=== PATIENT | male | born 1965 | race Caucasian/White ===

== ENCOUNTER 2025-01-13 07:02 | Inpatient (IN) | payer OTHER, SELFPAY ==
[2025-01-13] VITALS (23 sets, daily range): BP systolic 119–153; BP diastolic 67–87; PULSE 53–71; RESP 16–21; TEMP 36.1–36.7; O2SAT 93–100; BMI 28.8
--- NOTE | 2025-01-13 07:19 | EKG_ITS ---
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
[2025-01-13 07:39] LABS: Add Manual Diff / Slide Review NO; Hematocrit 40.5 % (41-53); Hemoglobin 13.8 g/dL (13.5-17.5); Lymphocytes Absolute Auto 1900 /uL (1100-4500); Mean Corpuscular HGB Conc 34.0 % (30-36); Mean Corpuscular Hemoglobin 29.0 PG (26-34); Mean Corpuscular Volume 85.5 fL (80-100); Platelet Count 203 X10^3/uL (150-400)
[2025-01-13 07:47] LABS: Alanine Aminotransferase 22 IU/L (<50); Albumin 5.0 g/dL (3.5-5.0); Albumin Globulin Ratio 1.4 (1.0-2.8); Alkaline Phosphatase 71 U/L (38-126); Blood Urea Nitrogen 17 mg/dL (9-20); Calcium 9.4 mg/dL (8.4-10.2); Carbon Dioxide 27 mmol/L (22-32); Chloride 99 mmol/L (98-107); Estimated Glomerular Filt Rate > 60 mL/min (>60); Globulin 3.6 g/dL (1.7-4.1); Glucose 127 mg/dL (70-99); HEMOLYSIS < 15 (0-50); Lipase 40 U/L (23-300); Potassium 3.8 mmol/L (3.4-5.1); Sodium 139 mmol/L (137-145); Total Protein 8.6 g/dL (6.3-8.2)
--- NOTE | 2025-01-13 09:10 | ED.ABDPAIN ---
HPI - Abdominal Pain General Chief Complaint: Abdominal Pain Stated Complaint: Stomach food poisoning symp; nausea, cramping Time Seen by Provider: 01/13/25 08:52 History of Present Illness HPI narrative: Patient is a 59-year-old male history of hypertension hyperlipidemia probable coronary artery disease but waiting for calcium score no stenting, presenting today with ongoing abdominal pain. He reports it for about 1 week he has had off and on abdominal pain 2 days he had vomiting he feels like he has backed up he has been taking MiraLax but has not really had a good bowel movement. No fever or chills. Now his pain is so bad that he is now having some chest pain. He was recently evaluated at the [facility] for coronary artery disease it appears that there is a partial blockage but waiting for more testing done. He now just feels pain in his belly radiating up to his chest. However the abdominal pain has been worse throughout the week. He also has some mild left flank pain but does not feel like pain from the back is radiating to the front. Related Data Allergies Allergy/AdvReac Type Severity Reaction Status Date / Time No Known Drug Allergies Allergy Verified 01/13/25 07:15 Exam Initial Vital Signs Initial Vital Signs: Vital Signs Temperature 97.8 F 01/13/25 07:15 Pulse Rate 71 01/13/25 07:15 Respiratory Rate 16 01/13/25 07:15 Blood Pressure 144/87 H 01/13/25 07:15 Pulse Oximetry 98 01/13/25 07:15 Oxygen Delivery Method Room Air 01/13/25 07:15 GENERAL: Alert anxious 51-year-old male HEENT: Head atraumatic,EOMI, pupils reactive, face symmetric, moist mucous membranes CARDIOVASCULAR: Regular rate and rhythm without murmurs, rubs or gallops. RESPIRATORY: Breath sounds equal bilaterally, no wheezes rales or rhonchi. ABDOMEN: Soft, minimally tender no significant distention no guarding no rebound negative Leyva's sign EXTREMITIES: Normal range of motion, no clubbing or edema. Neurovascularly intact NEUROLOGICAL: Alert and oriented x4.Normal gait and speech. Cranial nerves II through XII grossly intact. SKIN: Warm, dry, no laceration, no petechiae, no rashes or lesions. Course Orders Ordered: ED Orders 01/13/25 07:19 EKG-12 Lead Stat 01/13/25 07:25 Complete Blood Count AUTO DIFF Stat Comprehensive Metabolic Panel Stat Lipase Stat Troponin & CK Cardiac Panel Stat 01/13/25 09:22 CT abdomen pelvis w con Stat EKG-12 Lead Stat 01/13/25 09:59 US abdomen limited Stat Hydromorphone HCl (Hydromorphone 1 Mg/Ml Syringe) 0.5 mg IV Q2HR PRN PRN Reason: Pain, Moderate (4-6) Ondansetron HCl (Ondansetron 4 Mg/2 Ml Inj) 4 mg IV NOW PRN PRN Reason: Nausea And Vomiting Ondansetron HCl (Ondansetron 4 Mg Odt) 4 mg PO NOW PRN PRN Reason: Nausea And Vomiting Discontinued Medications Hydromorphone HCl (Hydromorphone Hcl 0.5 Mg/0.5 Ml Syringe) 0.5 mg IV NOW ONE Stop: 01/13/25 09:23 Last Admin: 01/13/25 09:43 Dose: 0.5 mg Documented By: MAYI Piperacillin Sod/Tazobactam (Sod 4.5 gm/ Sodium Chloride) 100 mls @ 200 mls/hr IV NOW ONE Stop: 01/13/25 11:04 Last Infusion: 01/13/25 12:39 Dose: Infused Documented By: Admin: 01/13/25 11:12 Dose: 200 mls/hr Documented By: MAYI Cefazolin Sodium/Dextrose (Ancef) 100 mls @ 200 mls/hr IV NOW ONE Stop: 01/13/25 12:54 Ondansetron HCl (Ondansetron 4 Mg/2 Ml Inj) 4 mg IV NOW ONE Stop: 01/13/25 09:23 Last Admin: 01/13/25 09:44 Dose: 4 mg Documented By: MAYI Vital Signs Vital signs: Vital Signs - 8 hr 01/13/25 07:15 01/13/25 07:28 01/13/25 07:29 Temperature 97.8 F Pulse Rate 71 63 Respiratory Rate 16 Blood Pressure 144/87 H 137/75 Pulse Oximetry 98 97 Oxygen Delivery Method Room Air 01/13/25 07:29 01/13/25 07:30 01/13/25 07:30 Temperature Pulse Rate 61 60 Respiratory Rate Blood Pressure 141/81 H Pulse Oximetry 98 98 Oxygen Delivery Method 01/13/25 08:00 01/13/25 08:00 01/13/25 08:30 Temperature Pulse Rate 61 57 L Respiratory Rate Blood Pressure 145/69 H Pulse Oximetry 97 99 Oxygen Delivery Method 01/13/25 08:30 01/13/25 09:00 01/13/25 09:00 Temperature Pulse Rate 57 L Respiratory Rate Blood Pressure 134/73 132/75 Pulse Oximetry 99 Oxygen Delivery Method 01/13/25 09:30 01/13/25 09:30 01/13/25 09:52 Temperature Pulse Rate 55 L Respiratory Rate Blood Pressure 142/67 H 140/70 Pulse Oximetry 100 Oxygen Delivery Method 01/13/25 09:52 01/13/25 10:00 01/13/25 10:00 Temperature Pulse Rate 59 L 57 L Respiratory Rate Blood Pressure 143/77 H Pulse Oximetry 99 95 Oxygen Delivery Method 01/13/25 10:30 01/13/25 10:30 01/13/25 11:00 Temperature Pulse Rate 57 L 56 L Respiratory Rate Blood Pressure 137/75 Pulse Oximetry 96 98 Oxygen Delivery Method 01/13/25 11:22 01/13/25 11:22 01/13/25 11:30 Temperature Pulse Rate 56 L Respiratory Rate Blood Pressure 150/72 H 143/78 H Pulse Oximetry 96 Oxygen Delivery Method 01/13/25 11:30 01/13/25 11:59 01/13/25 11:59 Temperature Pulse Rate 60 59 L Respiratory Rate Blood Pressure 151/75 H Pulse Oximetry 97 97 Oxygen Delivery Method 01/13/25 12:00 01/13/25 12:00 Temperature Pulse Rate 58 L Respiratory Rate Blood Pressure 153/79 H Pulse Oximetry 98 Oxygen Delivery Method MDM - Abdominal Pain Lab Data 01/13/25 07:25 01/13/25 07:25 Labs: Lab Results 01/13/25 Range/Units 07:25 WBC 8.3 (4.5-11.0) X10^3/uL RBC 4.74 (4.5-5.9) X10^6/uL Hgb 13.8 (13.5-17.5) g/dL Hct 40.5 L (41-53) % MCV 85.5 (80-100) fL MCH 29.0 (26-34) PG MCHC 34.0 (30-36) % RDW 13.2 (11.6-14.8) % Plt Count 203 (150-400) X10^3/uL Neut % (Auto) 68.2 (50-75) % Lymph % (Auto) 22.7 L (25-40) % [place] % (Auto) 7.6 (3-14) % Eos % (Auto) 0.9 L (2-4) % Baso % (Auto) 0.6 (0-2) % Neut # (Auto) 5600 (7083-4435) /uL Lymph # (Auto) 1900 (2711-9073) /uL [place] # (Auto) 600 (0-900) /uL Eos # (Auto) 100 (0-450) /uL Baso # (Auto) 100 (0-100) /uL Sodium 139 (137-145) mmol/L Potassium 3.8 (3.4-5.1) mmol/L Chloride 99 (98-107) mmol/L Carbon Dioxide 27 (22-32) mmol/L BUN 17 (9-20) mg/dL Creatinine 0.86 (0.66-1.25) mg/dL Estimated GFR > 60 (>60) mL/min BUN/Creatinine Ratio 19.8 (6-22) Glucose 127 H (70-99) mg/dL Calcium 9.4 (8.4-10.2) mg/dL Total Bilirubin 1.1 (0.2-1.3) mg/dL AST 28 (17-59) IU/L ALT 22 (<50) IU/L Alkaline Phosphatase 71 (38-126) U/L Total Creatine Kinase 128 (55-170) U/L Troponin I < 0.012 (0.01-0.034) ng/mL Total Protein 8.6 H (6.3-8.2) g/dL Albumin 5.0 (3.5-5.0) g/dL Globulin 3.6 (1.7-4.1) g/dL Albumin/Globulin Ratio 1.4 (1.0-2.8) Lipase 40 (23-300) U/L Point of care testing: Urine Dip Bedside Urine Glucose Negative Bedside Urine Bilirubin - Negative Bedside Urine Ketone + 15 Urine Specific [place] 1.005 Bedside Urine Occult Blood - Negative Bedside Urine pH 6.0 Bedside Urine Protein - Negative Bedside Urine Urobilinogen - Negative Bedside Urine Nitrite - Negative Bedside Urine Leukocytes - Negative Esterase Imaging Data CT scan - abdomen/pelvis: Radiologist's Impression: PROCEDURE: CT ABDOMEN PELVIS W CON INDICATIONS: ab pain across lower TECHNIQUE: After the administration of intravenous contrast, axial sections acquired from the lung bases to the pubic symphysis. Coronal and sagittal reformats were performed. For radiation dose reduction, the following was used: automated exposure control, adjustment of mA and/or kV according to patient size. COMPARISON: None. FINDINGS: Image quality: Diagnostic. Lower Chest: No significant findings. ABDOMEN: Liver: No solid mass. Gallbladder: Distended with possible wall thickening versus edema. Few calcified gallstones are noted. Biliary ducts: No biliary dilation. Pancreas: No ductal dilation. Spleen: Size is within normal limits. Adrenal Glands: No adrenal nodules. Kidneys and Ureters: No hydronephrosis. No solid mass. No complex renal cystic lesion which requires follow up. Stomach and Bowel: Normal colonic caliber, without significant wall thickening. Normal appendix. Peritoneum: No abnormal intraperitoneal fluid. No free air. Ventral Wall: No significant ventral hernia. Abdominal Nodes: No retroperitoneal or mesenteric adenopathy by size criteria. Vessels: Aorta and inferior vena cava are normal in size. PELVIS: Pelvic Organs: Unremarkable. Bladder: No bladder wall thickening, accounting for underdistention. Pelvic Nodes: No enlarged lymph nodes. Miscellaneous: No inguinal hernias are seen. Bones: No aggressive osseous abnormality. Degenerative changes with grade 1 anterolisthesis of L5 on S1 and bilateral pars interarticularis defects. IMPRESSION: Gallbladder is distended with wall thickening versus edema. Few calcified gallstones are noted. Recommend correlation with patient's symptoms and right upper quadrant ultrasound for further evaluation. Approved by: Bradford Lerner M.D. on 01/13/2025 at 9:55 US - abdomen: Radiologist's Impression: PROCEDURE: US ABDOMEN LIMITED INDICATIONS: RUQ TECHNIQUE: Real-time scanning was performed of the abdominal and retroperitoneal organs, with image documentation. COMPARISON: None. FINDINGS: Liver: Liver is normal in size and homogeneous in echotexture. Gallbladder: Gallbladder sludge and stones. Gallbladder wall is thickened measuring up to 7 mm. Pericholecystic fluid is present. Positive sonographic Leyva sign. Biliary ducts: Intrahepatic bile ducts are non-dilated. Extrahepatic bile duct caliber measures 4 mm. Normal is 6-7 mm or less in diameter, or 10 mm or less post-cholecystectomy. Pancreas: Visualized portions of the pancreas are sonographically normal. Miscellaneous: No free abdominal fluid. IMPRESSION: Gallbladder sludge and small stones with wall thickening, pericholecystic edema and positive sonographic Leyva sign. Findings are highly concerning for acute cholecystitis. Dictated by: Bradford Lerner M.D. on 01/13/2025 at 11:02 ECG Data Attestation: I personally reviewed and interpreted this ECG as follows: Prior ECG tracings: not available for review Interpretation: EKGs 1. Sinus rhythm rate 64 NC interval 182 QRS 98 QTC 425 T-wave inversion noted in lead 3 lead to his low elevation possible ST-elevation but no ST depression or alert elevation no priors to compare repeat EKGs AKA 2. Sinus rhythm no significant changes similar to prior MDM Narrative Medical decision making narrative: Patient 59-year-old male history of hypertension hyperlipidemia presenting today with 1 week of on and off abdominal pain with intermittent vomiting and some constipation. He continues to have lower abdominal pain now having some chest pain as well. Blood work has been reviewed CBC no leukocytosis no anemia CMP no electrolyte abnormality glucose 127 Bilirubin liver enzymes within normal limits lipase within normal limits Troponin negative Imaging reviewed CT abdomen and pelvis gallbladder distended with wall thickening versus edema few calcified gallstone Ultrasound right upper quadrant gallbladder sludge and small stones with wall thickening pericholecystic edema and positive Leyva's sign concerning for acute cholecystitis EKGs reviewed lead to his low voltage difficult to interpret if there is ST elevation in the lead but it is isolated there is no see depression Patient given Zosyn Dilaudid and Zofran Dr. Menjivar on-call surgery updated patient's symptoms test results he has reviewed imaging agree with probable acute cholecystitis. In ED to see and evaluate patient Patient will be admitted to surgery for acute cholecystitis. Discharge Plan Departure Patient Disposition: Admitted as Observation Clinical Impression: Acute cholecystitis Admit Date/Time: 01/13/25 12:15 Admit Provider: Anjum Menjivar
--- NOTE | 2025-01-13 09:22 | DI.CT.S_ITS ---
PROCEDURE: CT ABDOMEN PELVIS W CON INDICATIONS: ab pain across lower TECHNIQUE: After the administration of intravenous contrast, axial sections acquired from the lung bases to the pubic symphysis. Coronal and sagittal reformats were performed. For radiation dose reduction, the following was used: automated exposure control, adjustment of mA and/or kV according to patient size. COMPARISON: None. FINDINGS: Image quality: Diagnostic. Lower Chest: No significant findings. ABDOMEN: Liver: No solid mass. Gallbladder: Distended with possible wall thickening versus edema. Few calcified gallstones are noted. Biliary ducts: No biliary dilation. Pancreas: No ductal dilation. Spleen: Size is within normal limits. Adrenal Glands: No adrenal nodules. Kidneys and Ureters: No hydronephrosis. No solid mass. No complex renal cystic lesion which requires follow up. Stomach and Bowel: Normal colonic caliber, without significant wall thickening. Normal appendix. Peritoneum: No abnormal intraperitoneal fluid. No free air. Ventral Wall: No significant ventral hernia. Abdominal Nodes: No retroperitoneal or mesenteric adenopathy by size criteria. Vessels: Aorta and inferior vena cava are normal in size. PELVIS: Pelvic Organs: Unremarkable. Bladder: No bladder wall thickening, accounting for underdistention. Pelvic Nodes: No enlarged lymph nodes. Miscellaneous: No inguinal hernias are seen. Bones: No aggressive osseous abnormality. Degenerative changes with grade 1 anterolisthesis of L5 on S1 and bilateral pars interarticularis defects. IMPRESSION: Gallbladder is distended with wall thickening versus edema. Few calcified gallstones are noted. Recommend correlation with patient's symptoms and right upper quadrant ultrasound for further evaluation. Approved by: Bradford Lerner M.D. on 01/13/2025 at 9:55
--- NOTE | 2025-01-13 09:32 | EKG_ITS ---
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
[2025-01-13 09:42] LABS: Creatine Kinase 128 U/L (55-170)
[2025-01-13] MEDS: ONDANSETRON 4 MG/2 ML INJ IV (09:44)
[2025-01-13 09:55] LABS: Troponin I < 0.012 ng/mL (0.01-0.034)
--- NOTE | 2025-01-13 09:59 | DI.US.S_ITS ---
PROCEDURE: US ABDOMEN LIMITED INDICATIONS: RUQ TECHNIQUE: Real-time scanning was performed of the abdominal and retroperitoneal organs, with image documentation. COMPARISON: None. FINDINGS: Liver: Liver is normal in size and homogeneous in echotexture. Gallbladder: Gallbladder sludge and stones. Gallbladder wall is thickened measuring up to 7 mm. Pericholecystic fluid is present. Positive sonographic Leyva sign. Biliary ducts: Intrahepatic bile ducts are non-dilated. Extrahepatic bile duct caliber measures 4 mm. Normal is 6-7 mm or less in diameter, or 10 mm or less post-cholecystectomy. Pancreas: Visualized portions of the pancreas are sonographically normal. Miscellaneous: No free abdominal fluid. IMPRESSION: Gallbladder sludge and small stones with wall thickening, pericholecystic edema and positive sonographic Leyva sign. Findings are highly concerning for acute cholecystitis. Dictated by: Bradford Lerner M.D. on 01/13/2025 at 11:02 Approved by: Bradford Lerner M.D. on 01/13/2025 at 11:04
[2025-01-13] MEDS: PIPERACILLIN/TAZO 4.5 GM in SODIUM CHLORIDE 0.9% 100 ML IV (11:12)
--- NOTE | 2025-01-13 12:22 | P.HP_ITS ---
History of Present Illness History of Present Illness Date Patient Seen: 01/13/25 Time Patient Seen: 12:22 Chief complaint: Stomach food poisoning symp; nausea, cramping Narrative: Sascha is a 59-year-old man who presents with about 1 week of right upper quadrant and epigastric pain that seems to be made worse by eating. The pain comes in waves and can be quite severe when it is at its worst. He may have had other episodes of similar symptoms in the past which he had attributed to food poisoning. He came to the ER today and a CT scan and an ultrasound showed a distended thickened gallbladder with cholelithiasis and sludge. His labs are mostly normal. No prior abdominal surgery. He has diabetes and question of coronary artery disease. Meds Home Medications and Allergies Allergies Allergy/AdvReac Type Severity Reaction Status Date / Time No Known Drug Allergies Allergy Verified 01/13/25 07:15 Exam Vital Signs (past 8 hours): - 01/13/25 07:15 01/13/25 07:28 01/13/25 07:29 Temperature 97.8 F Pulse Rate 71 63 Respiratory Rate 16 Blood Pressure 144/87 H 137/75 Pulse Oximetry 98 97 Oxygen Delivery Method Room Air 01/13/25 07:29 01/13/25 07:30 01/13/25 07:30 Temperature Pulse Rate 61 60 Respiratory Rate Blood Pressure 141/81 H Pulse Oximetry 98 98 Oxygen Delivery Method 01/13/25 08:00 01/13/25 08:00 01/13/25 08:30 Temperature Pulse Rate 61 57 L Respiratory Rate Blood Pressure 145/69 H Pulse Oximetry 97 99 Oxygen Delivery Method 01/13/25 08:30 01/13/25 09:00 01/13/25 09:00 Temperature Pulse Rate 57 L Respiratory Rate Blood Pressure 134/73 132/75 Pulse Oximetry 99 Oxygen Delivery Method 01/13/25 09:30 01/13/25 09:30 01/13/25 09:52 Temperature Pulse Rate 55 L Respiratory Rate Blood Pressure 142/67 H 140/70 Pulse Oximetry 100 Oxygen Delivery Method 01/13/25 09:52 01/13/25 10:00 01/13/25 10:00 Temperature Pulse Rate 59 L 57 L Respiratory Rate Blood Pressure 143/77 H Pulse Oximetry 99 95 Oxygen Delivery Method 01/13/25 10:30 01/13/25 10:30 01/13/25 11:00 Temperature Pulse Rate 57 L 56 L Respiratory Rate Blood Pressure 137/75 Pulse Oximetry 96 98 Oxygen Delivery Method 01/13/25 11:22 01/13/25 11:22 01/13/25 11:30 Temperature Pulse Rate 56 L Respiratory Rate Blood Pressure 150/72 H 143/78 H Pulse Oximetry 96 Oxygen Delivery Method 01/13/25 11:30 Temperature Pulse Rate 60 Respiratory Rate Blood Pressure Pulse Oximetry 97 Oxygen Delivery Method Oxygen Delivery Method Room Air Narrative Exam Narrative: Abdomen is soft, minimally tender in the right upper quadrant No Elyva sign Objective Labs 01/13/25 07:25 01/13/25 07:25 Labs: Laboratory Results - last 24 hr 01/13/25 07:25 WBC 8.3 RBC 4.74 Hgb 13.8 Hct 40.5 L MCV 85.5 MCH 29.0 MCHC 34.0 RDW 13.2 Plt Count 203 Neut % (Auto) 68.2 Lymph % (Auto) 22.7 L [place] % (Auto) 7.6 Eos % (Auto) 0.9 L Baso % (Auto) 0.6 Neut # (Auto) 5600 Lymph # (Auto) 1900 [place] # (Auto) 600 Eos # (Auto) 100 Baso # (Auto) 100 Sodium 139 Potassium 3.8 Chloride 99 Carbon Dioxide 27 BUN 17 Creatinine 0.86 Estimated GFR > 60 BUN/Creatinine Ratio 19.8 Glucose 127 H Calcium 9.4 Total Bilirubin 1.1 AST 28 ALT 22 Alkaline Phosphatase 71 Total Creatine Kinase 128 Troponin I < 0.012 Total Protein 8.6 H Albumin 5.0 Globulin 3.6 Albumin/Globulin Ratio 1.4 Lipase 40 Assessment & Plan Assessment and plan (1) Acute cholecystitis: Status: Acute Plan I discussed laparoscopic cholecystectomy for symptomatic cholelithiasis and he would like to proceed today. Time-Based Coding :: [TOTAL MINUTES] spent with patient and on the chart (including review of chart, obtaining history, exam, reviewing outside data, placing orders, documenting exam and treatment plan, and counseling patient) on [DATE]. 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
[2025-01-13] MEDS: LACTATED RINGERS 1,000 ML 100 ML IV (17:03)
[2025-01-13] MEDS: MELATONIN 3 MG TABLET 9 MG PO (21:02)
[2025-01-14] VITALS (13 sets, daily range): BP systolic 113–170; BP diastolic 52–77; PULSE 51–66; RESP 14–19; TEMP 36.2–37.2; O2SAT 94–98
--- NOTE | 2025-01-14 | PATH_ITS ---
[facility] Accession Number: [id number] No. of containers..01 Tissue . 01 Material submitted: . gallbladder - GALLBLADDER . 01 Diagnosis: GALLBLADDER, CHOLECYSTECTOMY: Acute cholecystitis with cholelithiasis. One benign, reactive lymph node. [facility] [place] 1059 Local . 01 Electronically signed: . Audrey Rodriguez DO, Pathologist NPI- [id number] . 01 Gross description: . Received in formalin, labeled with two patient identifiers and gallbladder, is a 9.5 x 4.9 x 3.9 cm, hemorrhagic, focally disrupted, and deflated gallbladder. The serosa is camargo-brown, hemorrhagic, and dusky with adhesions. The lumen is filled with a moderate amount of hemorrhagic bile intermixed with two green, bosselated calculi ranging from 0.4 cm to 0.5 cm. The mucosa is hood-brown, velvety, and focally ulcerated. The gallbladder wall is fibrotic, edematous, firm, focally rubbery, and markedly thickened up to 1.0 cm. There is a 1.8 cm, firm, prominent, paracystic lymph node. [employer] Chief sections of the gallbladder wall to include cystic duct margin and bisected half of the paracystic lymph node are submitted in cassettes A1-A2. ([id number]) /FRR 01/16/2025 1338 Local . 01 Pathologist provided ICD-10: K81.0 . 01 CPT . 681083 Specimen Comment: A courtesy copy of this report has been sent to [phone] Performed at: [address], [place], [place] [id number] MD Alan Mcclain MD Phone: [phone]
[2025-01-14] MEDS: LACTATED RINGERS 1,000 ML 100 ML IV ×2 (02:32→13:30)
[2025-01-14 06:50] LABS: Add Manual Diff / Slide Review NO; Hematocrit 37.1 % (41-53); Hemoglobin 12.6 g/dL (13.5-17.5); Lymphocytes Absolute Auto 1500 /uL (1100-4500); Mean Corpuscular HGB Conc 33.9 % (30-36); Mean Corpuscular Hemoglobin 29.1 PG (26-34); Mean Corpuscular Volume 85.9 fL (80-100); Platelet Count 182 X10^3/uL (150-400)
[2025-01-14 07:11] LABS: Alanine Aminotransferase 16 IU/L (<50); Albumin 3.9 g/dL (3.5-5.0); Albumin Globulin Ratio 1.4 (1.0-2.8); Alkaline Phosphatase 61 U/L (38-126); Blood Urea Nitrogen 13 mg/dL (9-20); Calcium 9.0 mg/dL (8.4-10.2); Carbon Dioxide 27 mmol/L (22-32); Chloride 102 mmol/L (98-107); Estimated Glomerular Filt Rate > 60 mL/min (>60); Globulin 2.7 g/dL (1.7-4.1); Glucose 94 mg/dL (70-99); HEMOLYSIS < 15 (0-50); Potassium 4.1 mmol/L (3.4-5.1); Sodium 139 mmol/L (137-145); Total Protein 6.6 g/dL (6.3-8.2)
--- NOTE | 2025-01-14 09:17 | CM.DANOTE ---
Addendum entered by KOFFI Rowley 01/14/25 12:56: per supervisor in charge in rounds, plan for lap loreto today. potential even to dc home after that vs dc home tomorrow. no obvious CM needs SL Original Note: DCP Assessment Note Brief Pt is a 59yo M admitted with abdominal pain, followed by Dr. Menjivar for a lap loreto. unsure if pt is POD1 or not no OR notes from yesterday but the H&P indicates pt was to receive lap loreto yesterday. KOFFI reviewed EMR per chart review, pt lives indep with family in [place]. works for [employer]? primary care through the [facility]. per chart review, no obvious needs identified at this time. anticipate eventual dc home with family support when medically stable. unclear timeline at this time due to lack of documentation. KOFFI Rowley Discharge Planning/Care Management CM Discharge Assessment Start: 01/13/25 14:21 Freq: Status: Active Protocol: Document 01/14/25 09:16 VIPUL (Rec: 01/14/25 09:17 [id number]) Discharge Planning Assessment Assigned Discharge KOFFI Tena Burrer Machine Provider none listed Insurance Comment [facility] DPOA/Assigned Cresencia, mother Designee Name Contact Information [phone] Advance Directives? No History Provided By Patient Prior Living House Arrangements Household Members family Independent with ADL Yes 's Is patient alert and Yes oriented? Referrals Initiated None needed Review Status In Process Please Provide Date 01/14/25 Initial DC Assessment Was Performed Next Review Type Continued Stay Review
[2025-01-14] MEDS: LACTATED RINGERS 1,000 ML 42 ML IV ×2 (09:19→10:57)
--- NOTE | 2025-01-14 09:24 | PM.PN.IH.1 ---
Subjective Subjective Date Patient Seen: 01/14/25 Time Patient Seen: 09:24 Interval history: Surgery was delayed due to an emergent . He has done well overnight. Exam Vital Signs (past 8 hours): - 01/14/25 03:48 01/14/25 09:14 Temperature 97.5 F L 97.1 F L Pulse Rate 51 L 52 L Respiratory Rate 16 16 Blood Pressure 122/75 117/58 L Pulse Oximetry 98 98 Oxygen Delivery Method Room Air Oxygen Delivery Method Room Air Oxygen Flow Rate 0 Const General: No acute distress Objective Labs 01/14/25 06:30 01/14/25 06:30 Labs: Laboratory Results - last 24 hr 01/13/25 01/13/25 01/14/25 07:25 16:39 06:30 WBC 5.8 RBC 4.32 L Hgb 12.6 L Hct 37.1 L MCV 85.9 MCH 29.1 MCHC 33.9 RDW 13.0 Plt Count 182 Neut % (Auto) 62.6 Lymph % (Auto) 26.4 [place] % (Auto) 7.8 Eos % (Auto) 2.4 Baso % (Auto) 0.8 Neut # (Auto) 3600 Lymph # (Auto) 1500 [place] # (Auto) 400 Eos # (Auto) 100 Baso # (Auto) 0 Sodium 139 Potassium 4.1 Chloride 102 Carbon Dioxide 27 BUN 13 Creatinine 0.90 Estimated GFR > 60 BUN/Creatinine Ratio 14.4 Glucose 94 POC Whole Bld Glucose 109 H Calcium 9.0 Total Bilirubin 0.9 AST 20 ALT 16 Alkaline Phosphatase 61 Total Creatine Kinase 128 Troponin I < 0.012 Total Protein 6.6 Albumin 3.9 Globulin 2.7 Albumin/Globulin Ratio 1.4 01/14/25 08:59 WBC RBC Hgb Hct MCV MCH MCHC RDW Plt Count Neut % (Auto) Lymph % (Auto) [place] % (Auto) Eos % (Auto) Baso % (Auto) Neut # (Auto) Lymph # (Auto) [place] # (Auto) Eos # (Auto) Baso # (Auto) Sodium Potassium Chloride Carbon Dioxide BUN Creatinine Estimated GFR BUN/Creatinine Ratio Glucose POC Whole Bld Glucose 101 H Calcium Total Bilirubin AST ALT Alkaline Phosphatase Total Creatine Kinase Troponin I Total Protein Albumin Globulin Albumin/Globulin Ratio [facility] Social History household members: family Smoking Status: Never smoker alcohol intake: never Assessment & Plan Assessment and plan (1) Acute cholecystitis: Status: Acute Plan Laparoscopic cholecystectomy Time-Based Coding :: [TOTAL MINUTES] spent with patient and on the chart (including review of chart, obtaining history, exam, reviewing outside data, placing orders, documenting exam and treatment plan, and counseling patient) on [DATE]. [facility] Head Of Ethics And Compliance Document charge(s): No
--- NOTE | 2025-01-14 09:54 | SUR.OPER ---
Supine on padded OR bed, head on pillow, safety belt at thigh. Arms secured on padded arm board <90 degrees abduction. Legs uncrossed. Padded footboard in place. Final position approved by Dr. Menjivar.
--- NOTE | 2025-01-14 11:43 | P.OP_ITS ---
Operative Date/Time/Diagnoses Date of procedure: 01/14/25 Time of procedure: 11:43 Pre-op diagnosis: Acute cholecystitis Post-op diagnosis: same Procedure & Clinicians Procedure: Laparoscopic cholecystectomy Same procedure(s) as scheduled: Yes Indications: Acute cholecystitis Surgeon: Anjum Menjivar Assisted?: No Anesthesia Type: General Operative Notes Findings: Inflamed distended gallbladder with numerous stones Applied: none Estimated Blood Loss (mL): 25 Procedure in detail: The patient was given preoperative antibiotics. The patient was brought to the operating room and placed on the table in the supine position. General endotracheal anesthesia was induced. The abdomen was prepped and draped. A time-out was performed. We made a 1 cm infraumbilical incision. We dissected down to the base of the umbilical stalk using cautery. We grasped the umbilical stalk with a Lionel clamp to elevate the abdominal wall. We scored the fascia in the midline with cautery. We pierced the peritoneum with a Peon clamp. The Colleen port was placed and the abdomen was insufflated to 15 mmHg. A 5 mm 30 degree laparoscopic was inserted. There was no evidence of any injury from the entry. Next, we placed 5 mm ports in the subxiphoid position and right upper quadrant at the midclavicular line and anterior axillary line. The patient was then positioned in reverse Trendelenburg and the table was tilted to the left. The gallbladder was tensely distended. The gallbladder was aspirated with a needle removing approximately 30 mL of dark bile. The gallbladder was then grasped at the dome and retracted cephalad. There was a thick inflammatory rind around the gallbladder. The cystic structures were dissected with a combination of hook cautery and blunt dissection. The critical view was obtained. Clips were placed on the cystic duct and artery and the structures were divided sharpl y between the clips. The gallbladder was then dissected off the liver and placed in a specimen retrieval bag. There were numerous small gallstones were spilled from tears in the gallbladder wall during the dissection. These were all removed with a grasper or suctioned up. The subxiphoid port was upsized to a 12 mm port to allow the larger suction tip. The right upper quadrant was irrigated and aspirated until everything was clear. The 5 mm ports were removed under direct vision and the Stein port was removed. Local was injected into the fascia and the subxiphoid and umbilical incisions were closed with 0 Vicryl. The skin incisions were closed with 4-0 Monocryl and Steri-Strips were applied. Band-Aids were applied over the Steri-Strips. Specimen: Gallbladder and contents Complications: none Post-operative Condition: stable Disposition: PACU
--- NOTE | 2025-01-14 11:59 | SUR.PHASEI ---
Patient resting comfortably with eyes closed; responsive to verbal stimuli. Denies any pain or nausea; vss. Able to tolerate sips of water.
[2025-01-14] MEDS: ONDANSETRON 4 MG/2 ML INJ IV (13:26)
--- NOTE | 2025-01-14 17:53 | PC.NURSE ---
Discharge note: Discharge instructions given to patient, discussed importance of weight restrictions, dressing/incision care, and signs of worsening symptoms. Up OOB ambulating independently in room, tolerating diet, voiding without any issues, VSS, and pain controlled with PO medication ordered. Patient verbalized understanding of discharge instructions. Home via WC accompanied by Sister. Rx to be picked up at [facility].
== END 2025-01-14 17:20 | disposition home or self-care (01) | DRG 419 ==
LOC: ED 11:50 → AC 14:09
PROVIDERS: Admitting Provider Surgery; Emergency Provider Emergency Medicine; Referring Provider Emergency Medicine; Visit Provider Surgery
PROC: 0FT44ZZ Resection of Gallbladder, Percutaneous Endoscopic Approach (ICD-10-PCS; CPT 47562; principal; 2025-01-14 09:30)
DX: K80.00 Calculus of gallbladder with acute cholecystitis without obstruction (principal); I10 Essential (primary) hypertension
CPT/HCPCS: 36415; 47562; 74177; 76705; 80053; 81003; 82550; 82962; 83690; 84484; 85025; 93005; 93010; 96365; 96375; 99222; 99284; G0378; J0330; J0689; J1100; J1171; J2250; J2405; J2543; J2704; J3010; J3490; J7050; J7120; Q9967